=== PATIENT | male | born 1960 | race Caucasian/White ===

== ENCOUNTER 2021-04-19 02:02 | Day surgery (SDC) | payer OTHER, SELFPAY ==
[2021-04-10 14:47] VITALS: BMI 35.9
[2021-04-19] MEDS: LACTATED RINGERS 1,000 ML 150 ML IV CONT (07:04)
[2021-04-19 07:06] VITALS: BP 156/85; PULSE 51; RESP 18; TEMP 36.2; O2SAT 99
--- NOTE | 2021-04-19 07:08 | WPDANESEPPF ---
Anes - Initial Pre Proc Eval Procedure: Operation Date: 04/19/21 08:00 Proposed Procedures p Screening Colonoscopy - Geoffrey Rodas MD Date/Time: 04/19/21 07:08 Surgeon: Geoffrey Rodas MD Pre Op Diagnosis: neoplasm screening Patient Data Age: 60 Gender: M Height: 1.73 m Weight: 107 kg Allergies Allergy/AdvReac Type Severity Reaction Status Date / Time No Known Drug Allergies Allergy Unknown Unknown Verified 04/10/21 15:08 Home Medications Medication Instructions Recorded Confirmed Type amlodipine 10 mg tablet 10 mg PO DAILY #90 tablet 12/28/20 04/10/21 Rx hydrochlorothiazide 25 mg tablet 25 mg PO DAILY #90 tablet 12/28/20 04/10/21 Rx valsartan 320 mg tablet 320 mg PO DAILY #90 tablet 12/28/20 04/10/21 Rx fenofibrate 160 mg PO DAILY 04/10/21 04/10/21 History metoprolol succinate 50 mg PO BID 04/10/21 04/10/21 History Patient hx anesthesia problems: none Family hx anesthesia problems: none PMFSH Surgical History Surgical History H/O colonoscopy History of carpal tunnel release Total knee replacement status Family History Family History Mother Diabetes mellitus Hypertension Family history of kidney disease Family history of coronary artery disease Father Hypertension Acute myocardial infarction Family history of coronary artery disease Patient's father is , Onset Age: 61 Sibling Acute myocardial infarction Family history of malignant neoplasm of brain Family history of obesity, Onset Age: 43 Family history of coronary artery disease, Onset Age: 43 Social History Social History Smoking status: Never smoker Alcohol intake: current Drinks per week: 5 Substance use: never Substance use type: does not use Living arrangements: with family Gender identity (if verbalized by the patient): Male Sexual Orientation (if Verbalized by the Patient): Straight or Heterosexual Spiritual care concerns: No Anes - Eval Final PreProcedure Day of Procedure 04/19/21 07:08 Patient weight: obese Heart: regular rate and rhythm Lungs: clear to auscultation Airway: Mallampati scale class II Neurological: alert and oriented Last oral intake: >/= 8 hours ASA classification: III Emergent: no Anesthetic plan: proceed Anesthesia type and monitoring: general GIVS and standard monitoring Informed Consent: The patient's anesthetic plan and its attendant risks and benefits were discussed with the patient/family/POA. Questions were solicited and answers provided to the satisfaction of the patient/family/POA.
--- NOTE | 2021-04-19 07:57 | PM.HPGS ---
History of Present Illness History of Present Illness Consent: Risks, benefits, and alternatives have been discussed and questions answered. Patient agrees to proceed with procedure. Chief complaint: neoplasm screening Narrative: Mg George is a 60 year old male with last colonoscopy 11 years ago. Review of Systems Constitutional: Constitutional: Denies headache(s) and Denies weakness Eyes: Eyes: Denies blurry vision ENT: Reports Normal hearing present, Denies headache(s) and Denies neck pain Cardiovascular: Cardiovascular: Denies chest pain and Denies dyspnea Respiratory: Respiratory: Denies dyspnea Gastrointestinal: Gastrointestinal: Reports no additional gastrointestinal complaints Genitourinary: Genitourinary: Denies dysuria Musculoskeletal: Musculoskeletal: Denies neck pain Integumentary/Breasts: Skin/Breast: Denies dry skin Neurologic: Reports Normal hearing present, Denies headache(s) and Denies weakness Psychiatric: Psychiatric: Denies anxiety Endocrine: Endocrine: Denies change in body appearance Hematologic/Lymphatic: Hematologic/Lymphatic: Denies easy bleeding Allergic/Immunologic: Allergic/Immunologic: Denies urticaria PMFSH Surgical History Surgical History H/O colonoscopy History of carpal tunnel release Total knee replacement status Family History Family History Mother Diabetes mellitus Hypertension Family history of kidney disease Family history of coronary artery disease Father Hypertension Acute myocardial infarction Family history of coronary artery disease Patient's father is , Onset Age: 61 Sibling Acute myocardial infarction Family history of malignant neoplasm of brain Family history of obesity, Onset Age: 43 Family history of coronary artery disease, Onset Age: 43 Social History Social History Smoking status: Never smoker Alcohol intake: current Drinks per week: 5 Substance use: never Substance use type: does not use Living arrangements: with family Gender identity (if verbalized by the patient): Male Sexual Orientation (if Verbalized by the Patient): Straight or Heterosexual Spiritual care concerns: No Meds Home Medications and Allergies Home Medications Medication Instructions Recorded Confirmed Type amlodipine 10 mg tablet 10 mg PO DAILY #90 tablet 12/28/20 04/10/21 Rx hydrochlorothiazide 25 mg tablet 25 mg PO DAILY #90 tablet 12/28/20 04/10/21 Rx valsartan 320 mg tablet 320 mg PO DAILY #90 tablet 12/28/20 04/10/21 Rx fenofibrate 160 mg PO DAILY 04/10/21 04/10/21 History metoprolol succinate 50 mg PO BID 04/10/21 04/10/21 History Allergies Allergy/AdvReac Type Severity Reaction Status Date / Time No Known Drug Allergies Allergy Unknown Unknown Verified 04/19/21 07:09 Vital Signs Vital Signs - 24 hr 04/19/21 07:06 Temperature 97.2 F L Pulse Rate 51 L Respiratory Rate 18 Blood Pressure 156/85 H Pulse Oximetry 99 Exam Const: General: comfortable and no acute distress HENMT: General nose exam: Normal nares present Eyes: General: appearance normal, both eyes and all related structures Neck: Neck: no JVD Resp: Auscultation: clear to auscultation bilaterally Cardio: Rate: regular rate Rhythm: regular rhythm GI: Inspection: non-distended GI Palp: Yes Soft to palpation Skin: General skin exam: normal color Neuro: General: gait normal Speech: normal speech Extrem: General: normal to inspection Psych: Mental Status: mental status grossly normal Assessment and Plan Assessment and plan (1) Screening for colon cancer: Code(s): Z12.11 - Encounter for screening for malignant neoplasm of colon Status: Acute Assessment and Plan: colonoscopy
[2021-04-19 08:16] VITALS: BP 94/47; PULSE 48; RESP 22; O2SAT 93
[2021-04-19 08:26] VITALS: BP 118/60; PULSE 48; RESP 16; O2SAT 96
[2021-04-19 08:36] VITALS: BP 132/70; PULSE 46; RESP 18; O2SAT 96
== END 2021-04-19 08:48 | disposition home or self-care (01) ==
PROVIDERS: PCP Family Medicine; Visit Provider Internal Medicine Gastroenterology
PROC: 0DJD8ZZ Inspection of Lower Intestinal Tract, Via Natural or Artificial Opening Endoscopic (ICD-10-PCS; CPT 45378; principal; 2021-04-19 08:00)
DX: Z12.11 Encounter for screening for malignant neoplasm of colon (principal); K64.8 Other hemorrhoids; D12.3 Benign neoplasm of transverse colon; D12.8 Benign neoplasm of rectum; K57.30 Diverticulosis of large intestine without perforation or abscess without bleeding; E66.9 Obesity, unspecified; Z68.35 Body mass index [BMI] 35.0-35.9, adult
CPT/HCPCS: 45385; 88305; J2704; J7120

== ENCOUNTER 2024-08-17 09:20 | Emergency (ER) | payer MEDICARE, SELFPAY ==
--- NOTE | ~2024-08-17 | XR_ITS ---
Portable chest x-ray Comparison: None Clinical History: Arrhythmia Findings: Lungs are clear, without focal consolidation or pleural effusion. Cardiomediastinal silho uette is mildly prominent, possibly due to AP technique. Bones and soft tissues are unremarkable. Impression: Clear lungs. Reviewed, dictated and finalized at location . [facility] Impression: Clear lungs.
--- NOTE | 2024-08-17 09:25 | ECG_ITS ---
Test Date: 2024-08-17 09:37:21 Measurements Intervals [place] Rate: 98 P: 0 IA: 0 QRS: -37 QRSD: 105 T: 36 QT: 333 QTc: 426 Interpretive Statements ATRIAL FIBRILLATION WITH ABERRANT CONDUCTION OR VENTRICULAR PREMATURE COMPLEXES POSSIBLE ANTERIOR MYOCARDIAL INFARCTION , PROBABLY OLD [30 ms Q WAVE IN V3/V4, OR R < 0.2 mV IN V4] INFERIOR MYOCARDIAL INFARCTION , PROBABLY OLD [40+ ms Q WAVE AND/OR ST/T ABNORMALITY IN II/aVF] No previous ECG available for comparison Electronically Signed On 08-17-2024 12:05:39 [employer] by Sonido Aviles M.D.
[2024-08-17 09:30] VITALS: BP 140/95; PULSE 88; RESP 18; TEMP 36.7; O2SAT 96
[2024-08-17 09:43] LABS: Basophils Percent Auto 0.4 % (0.2-1.2); Eosinophils Absolute Auto 0.1 K/mm3 (0-0.3); Eosinophils Percent Auto 0.7 % (0-4.4); Hematocrit 40.3 % (42.0-52.0); Hemoglobin 13.7 g/dL (14.0-18.0); Immature Granulocyte Absolute 0.05 K/mm3 (0.00-0.031); Immature Granulocyte Percent A 0.5 % (0-0.5); Lymphocytes Absolute Auto 1.83 K/mm3 (0.9-3.2); Lymphocytes Percent Auto 16.7 % (18.3-44.2); Mean Corpuscular Hemoglobin 30.4 pg (26-34); Mean Corpuscular Volume 89.6 fl (80-100); Mean Platelet Volume 11.1 fl (7.4-10.4); Monocytes Absolute Auto 0.9 K/mm3 (0.1-0.6); Monocytes Percent Auto 8.3 % (2.6-8.5); Neutrophils Percent Auto 73.4 % (45.5-73.1); Platelet Count Result 249 k/mm3 (150-375); Red Cell Distribution Width 12.8 % (11.5-14.5); White Blood Count 10.9 K/mm3 (4.5-10.0)
[2024-08-17 09:56] LABS: INR 1.2; Prothrombin Time 15.3 Seconds (11.1-14.7)
[2024-08-17 09:57] LABS: Partial Thromboplastin Time 26.7 Seconds (22.3-36.8)
[2024-08-17 09:58] LABS: Alanine Aminotransferase 19 U/L (6-50); Albumin Level 4.5 g/dL (3.5-5.1); Alkaline Phosphatase 33 U/L (38-126); Anion Gap 10 mmol/L (4-12); Aspartate Amino Transferase 30 U/L (17-59); Bilirubin,Total 0.8 mg/dL (0.2-1.3); Blood Urea Nitrogen 16 mg/dL (9-20); Calcium 9.4 mg/dL (8.4-10.2); Carbon Dioxide 21 mmol/L (22-30); Chloride 108 mmol/L (98-107); Estimated CRCL calculation 87 ml/min; Estimated Glomerular Filt Rate > 60; Glucose 114 mg/dL (65-110); Potassium 3.7 mmol/L (3.4-5.0); Sodium 139 mmol/L (137-145)
[2024-08-17 10:08] LABS: Troponin I < 0.012 ng/mL (0.000-0.034)
[2024-08-17 10:37] VITALS: BP 129/104; PULSE 95; RESP 18; O2SAT 97
[2024-08-17 10:38] VITALS: PULSE 87
--- NOTE | 2024-08-17 10:46 | ED.ARRPALP ---
HPI - Arrhythmia/Palpitations General Chief Complaint: Arrhythmia/Palpitations Stated Complaint: sent by PMD for AFIB Time Seen by Provider: 08/17/24 10:38 History of Present Illness HPI narrative: Pt sent from PCP office with new onset a fib. Pt denies CP or SOB. Pt denies new excercise intolerance. Pt not on blood thinners. Related Data Home Medications ?Medication ?Instructions ?Recorded ?Confirmed ?Last Taken ?Type metoprolol succinate 100 mg 100 mg PO DAILY 04/16/24 08/17/24 Unknown History tablet,extended release 24 hr multivitamin 1 tablet PO DAILY 08/17/24 08/17/24 Unknown History Allergies Allergy/AdvReac Type Severity Reaction Status Date / Time No Known Drug Allergies Allergy Unknown Unknown Verified 08/17/24 09:21 Review of Systems Review of Systems: All systems reviewed & are unremarkable except as noted in HPI and below PMFSH Surgical History Surgical History History of carpal tunnel release H/O colonoscopy Total knee replacement status Family History Family History Mother Diabetes mellitus Hypertension Family history of kidney disease Family history of coronary artery disease Father Hypertension Acute myocardial infarction Family history of coronary artery disease Patient's father is , Onset Age: 61 Sibling Acute myocardial infarction Family history of malignant neoplasm of brain Family history of obesity, Onset Age: 43 Family history of coronary artery disease, Onset Age: 43 Social History Social History Social History: Caffeine- soda, decaf coffee Smoking status: Never smoker Second hand tobacco smoke exposure: No Alcohol intake: current Drinks per week: 5 Alcohol use details: beer Substance use: never Substance use type: does not use Do You Feel Safe in your Home?: Yes Lack of Transportation: No Lack of Food: Never True Current Housing: I Have Housing Concerned About Future Housing: No Difficulty Paying Gas/Electric Bills: No Difficulty Paying for Meds: No Currently Unemployed: No Education: High School Diploma/GED Difficulty w/ Childcare or Family Care: No Living arrangements: with family Gender identity (if verbalized by the patient): Male Sexual Orientation (if Verbalized by the Patient): Straight or Heterosexual Spiritual care concerns: No Exam Const: General: healthy appearing and no acute distress Nutritional Appearance: well nourished Orientation/consciousness: patient oriented x3 Limitations: no limitations Chest: Chest palpation & inspection: normal inspection of the chest Resp: Effort & Inspection: normal respiratory effort Auscultation: clear to auscultation bilaterally Cardio: Rate: regular rate Rhythm: abnormal rhythm GI: GI Palp: Yes Soft to palpation and No Tenderness to palpation present (GI) Auscultation: normal bowel sounds Skin: General skin exam: normal color Rashes: no rashes Wounds: no wounds Neuro: General: patient oriented x3, moves all extremities, no meningeal signs and CN's II-XI intact bilaterally Cranial nerves: Yes Nystagmus not present Speech: normal speech Extrem: General: normal to inspection and no clubbing, cyanosis or edema Psych: Mental Status: mental status grossly normal Affect: normal affect Attitude: cooperative Course Vital Signs Vital signs: Vital Signs Temperature 98.1 F 08/17/24 09:30 Pulse Rate 88 08/17/24 09:30 Respiratory Rate 18 08/17/24 09:30 Blood Pressure 140/95 H 08/17/24 09:30 Pulse Oximetry 96 08/17/24 09:30 Oxygen Delivery Room Air 08/17/24 09:30 Temperature 97.8 F 08/17/24 11:33 Pulse Rate 99 08/17/24 11:33 Respiratory Rate 18 08/17/24 11:33 Blood Pressure 141/98 H 08/17/24 11:33 Pulse Oximetry 98 08/17/24 11:33 Oxygen Delivery Room Air 08/17/24 10:37 MDM - Arrhythmia/Palpitations MDM Narrative Medical decision making narrative: Pt new onset a fib rate controlled. Pt asymptomatic. will check labs and ekg and cxr. labs unremarkable. discussed with dr dyer asked for cards to evaluate to determine need for admission or outpatient work up. discussed with paul Clark and says no need for admission. can send home on eliquis or xeralto with outpatient follow up with either pcp or cardiology. Lab Data 08/17/24 09:33 08/17/24 09:33 Labs: Lab Results 08/17/24 08/17/24 08/17/24 Range/Units 09:33 09:33 09:33 WBC 10.9 H (4.5-10.0) K/mm3 RBC 4.50 L (4.6-6.20) M/mm3 Hgb 13.7 L (14.0-18.0) g/dL Hct 40.3 L (42.0-52.0) % MCV 89.6 (80-100) fl MCH 30.4 (26-34) pg MCHC 34.0 (32-36) g/dl RDW 12.8 (11.5-14.5) % Plt Count 249 (150-375) k/mm3 MPV 11.1 H (7.4-10.4) fl Immature Gran % (Auto) 0.5 (0-0.5) % Neut % (Auto) 73.4 H (45.5-73.1) % Lymph % (Auto) 16.7 L (18.3-44.2) % [place] % (Auto) 8.3 (2.6-8.5) % Eos % (Auto) 0.7 (0-4.4) % Baso % (Auto) 0.4 (0.2-1.2) % Lymph # (Auto) 1.83 (0.9-3.2) K/mm3 [place] # (Auto) 0.9 H (0.1-0.6) K/mm3 Eos # (Auto) 0.1 (0-0.3) K/mm3 Baso # (Auto) 0.0 (0.0-0.1) K/mm3 Abs Immat Gran (auto) 0.05 H (0.00-0.031) K/mm3 Absolute Neuts (auto) 8.0 H (1.3-6.7) K/mm3 Absolute Nucleated RBC 0.000 (0.0-0.012) K/mm3 Nucleated RBC % 0.0 (0.0-0.2) % PT 15.3 H (11.1-14.7) Seconds INR 1.2 APTT 26.7 (22.3-36.8) Seconds Sodium Cancelled 139 Potassium Cancelled 3.7 Chloride Cancelled Carbon Dioxide Anion Gap BUN Creatinine Estim Creat Clear Calc Estimated GFR Glucose Calcium Total Bilirubin AST ALT Alkaline Phosphatase Troponin I (0.000-0.034) ng/mL Total Protein Albumin 08/17/24 08/17/24 08/17/24 Range/Units 09:33 09:33 09:33 WBC (4.5-10.0) K/mm3 RBC (4.6-6.20) M/mm3 Hgb (14.0-18.0) g/dL Hct (42.0-52.0) % MCV (80-100) fl MCH (26-34) pg MCHC (32-36) g/dl RDW (11.5-14.5) % Plt Count (150-375) k/mm3 MPV (7.4-10.4) fl Immature Gran % (Auto) (0-0.5) % Neut % (Auto) (45.5-73.1) % Lymph % (Auto) (18.3-44.2) % [place] % (Auto) (2.6-8.5) % Eos % (Auto) (0-4.4) % Baso % (Auto) (0.2-1.2) % Lymph # (Auto) (0.9-3.2) K/mm3 [place] # (Auto) (0.1-0.6) K/mm3 Eos # (Auto) (0-0.3) K/mm3 Baso # (Auto) (0.0-0.1) K/mm3 Abs Immat Gran (auto) (0.00-0.031) K/mm3 Absolute Neuts (auto) (1.3-6.7) K/mm3 Absolute Nucleated RBC (0.0-0.012) K/mm3 Nucleated RBC % (0.0-0.2) % PT (11.1-14.7) Seconds INR APTT (22.3-36.8) Seconds Sodium Potassium Chloride 108 H Carbon Dioxide Cancelled 21 L Anion Gap Cancelled 10 BUN Cancelled Creatinine Estim Creat Clear Calc Estimated GFR Glucose Calcium Total Bilirubin AST ALT Alkaline Phosphatase Troponin I (0.000-0.034) ng/mL Total Protein Albumin 08/17/24 08/17/24 08/17/24 Range/Units 09:33 09:33 09:33 WBC (4.5-10.0) K/mm3 RBC (4.6-6.20) M/mm3 Hgb (14.0-18.0) g/dL Hct (42.0-52.0) % MCV (80-100) fl MCH (26-34) pg MCHC (32-36) g/dl RDW (11.5-14.5) % Plt Count (150-375) k/mm3 MPV (7.4-10.4) fl Immature Gran % (Auto) (0-0.5) % Neut % (Auto) (45.5-73.1) % Lymph % (Auto) (18.3-44.2) % [place] % (Auto) (2.6-8.5) % Eos % (Auto) (0-4.4) % Baso % (Auto) (0.2-1.2) % Lymph # (Auto) (0.9-3.2) K/mm3 [place] # (Auto) (0.1-0.6) K/mm3 Eos # (Auto) (0-0.3) K/mm3 Baso # (Auto) (0.0-0.1) K/mm3 Abs Immat Gran (auto) (0.00-0.031) K/mm3 Absolute Neuts (auto) (1.3-6.7) K/mm3 Absolute Nucleated RBC (0.0-0.012) K/mm3 Nucleated RBC % (0.0-0.2) % PT (11.1-14.7) Seconds INR APTT (22.3-36.8) Seconds Sodium Potassium Chloride Carbon Dioxide Anion Gap BUN 16 Creatinine Cancelled 0.90 Estim Creat Clear Calc Cancelled 87 Estimated GFR Cancelled Glucose Calcium Total Bilirubin AST ALT Alkaline Phosphatase Troponin I (0.000-0.034) ng/mL Total Protein Albumin 08/17/24 08/17/24 08/17/24 Range/Units 09:33 09:33 09:33 WBC (4.5-10.0) K/mm3 RBC (4.6-6.20) M/mm3 Hgb (14.0-18.0) g/dL Hct (42.0-52.0) % MCV (80-100) fl MCH (26-34) pg MCHC (32-36) g/dl RDW (11.5-14.5) % Plt Count (150-375) k/mm3 MPV (7.4-10.4) fl Immature Gran % (Auto) (0-0.5) % Neut % (Auto) (45.5-73.1) % Lymph % (Auto) (18.3-44.2) % [place] % (Auto) (2.6-8.5) % Eos % (Auto) (0-4.4) % Baso % (Auto) (0.2-1.2) % Lymph # (Auto) (0.9-3.2) K/mm3 [place] # (Auto) (0.1-0.6) K/mm3 Eos # (Auto) (0-0.3) K/mm3 Baso # (Auto) (0.0-0.1) K/mm3 Abs Immat Gran (auto) (0.00-0.031) K/mm3 Absolute Neuts (auto) (1.3-6.7) K/mm3 Absolute Nucleated RBC (0.0-0.012) K/mm3 Nucleated RBC % (0.0-0.2) % PT (11.1-14.7) Seconds INR APTT (22.3-36.8) Seconds Sodium Potassium Chloride Carbon Dioxide Anion Gap BUN Creatinine Estim Creat Clear Calc Estimated GFR > 60 Glucose Cancelled 114 H Calcium Cancelled 9.4 Total Bilirubin Cancelled AST ALT Alkaline Phosphatase Troponin I (0.000-0.034) ng/mL Total Protein Albumin 08/17/24 08/17/24 08/17/24 Range/Units 09:33 09:33 09:33 WBC (4.5-10.0) K/mm3 RBC (4.6-6.20) M/mm3 Hgb (14.0-18.0) g/dL Hct (42.0-52.0) % MCV (80-100) fl MCH (26-34) pg MCHC (32-36) g/dl RDW (11.5-14.5) % Plt Count (150-375) k/mm3 MPV (7.4-10.4) fl Immature Gran % (Auto) (0-0.5) % Neut % (Auto) (45.5-73.1) % Lymph % (Auto) (18.3-44.2) % [place] % (Auto) (2.6-8.5) % Eos % (Auto) (0-4.4) % Baso % (Auto) (0.2-1.2) % Lymph # (Auto) (0.9-3.2) K/mm3 [place] # (Auto) (0.1-0.6) K/mm3 Eos # (Auto) (0-0.3) K/mm3 Baso # (Auto) (0.0-0.1) K/mm3 Abs Immat Gran (auto) (0.00-0.031) K/mm3 Absolute Neuts (auto) (1.3-6.7) K/mm3 Absolute Nucleated RBC (0.0-0.012) K/mm3 Nucleated RBC % (0.0-0.2) % PT (11.1-14.7) Seconds INR APTT (22.3-36.8) Seconds Sodium Potassium Chloride Carbon Dioxide Anion Gap BUN Creatinine Estim Creat Clear Calc Estimated GFR Glucose Calcium Total Bilirubin 0.8 AST Cancelled 30 ALT Cancelled 19 Alkaline Phosphatase Cancelled Troponin I (0.000-0.034) ng/mL Total Protein Albumin 08/17/24 08/17/24 08/17/24 Range/Units 09:33 09:33 09:33 WBC (4.5-10.0) K/mm3 RBC (4.6-6.20) M/mm3 Hgb (14.0-18.0) g/dL Hct (42.0-52.0) % MCV (80-100) fl MCH (26-34) pg MCHC (32-36) g/dl RDW (11.5-14.5) % Plt Count (150-375) k/mm3 MPV (7.4-10.4) fl Immature Gran % (Auto) (0-0.5) % Neut % (Auto) (45.5-73.1) % Lymph % (Auto) (18.3-44.2) % [place] % (Auto) (2.6-8.5) % Eos % (Auto) (0-4.4) % Baso % (Auto) (0.2-1.2) % Lymph # (Auto) (0.9-3.2) K/mm3 [place] # (Auto) (0.1-0.6) K/mm3 Eos # (Auto) (0-0.3) K/mm3 Baso # (Auto) (0.0-0.1) K/mm3 Abs Immat Gran (auto) (0.00-0.031) K/mm3 Absolute Neuts (auto) (1.3-6.7) K/mm3 Absolute Nucleated RBC (0.0-0.012) K/mm3 Nucleated RBC % (0.0-0.2) % PT (11.1-14.7) Seconds INR APTT (22.3-36.8) Seconds Sodium Potassium Chloride Carbon Dioxide Anion Gap BUN Creatinine Estim Creat Clear Calc Estimated GFR Glucose Calcium Total Bilirubin AST ALT Alkaline Phosphatase 33 L Troponin I < 0.012 (0.000-0.034) ng/mL Total Protein Cancelled 8.0 Albumin Cancelled 4.5 Discharge Plan Discharge Clinical Impression: Atrial fibrillation, new onset Patient Disposition: Home, Self-Care Condition: Stable Instructions: Antibiotic Form, A-fib (Atrial Fibrillation) (ED) Patient Language: Thai Prescriptions: New Xarelto 20 mg tablet 20 mg PO DAILY Qty: 30 0RF Rx Instructions: must administer with evening meal No Action multivitamin Tablet 1 tablet PO DAILY levothyroxine 25 mcg tablet 25 mcg PO DAILY Qty: 90 1RF fenofibrate 160 mg tablet 160 mg PO DAILY Qty: 90 1RF metoprolol succinate 100 mg tablet extended release 24 hr 100 mg PO DAILY hydrochlorothiazide 25 mg tablet 25 mg PO DAILY Qty: 90 1RF amlodipine-valsartan 10-320 mg tablet See Rx Instructions .ROUTE .COMPLEX Qty: 90 1RF Dose Instruction: TAKE 1 TABLET DAILY Rx Instructions: TAKE 1 TABLET DAILY Follow-up/Referrals: Sonido Aviles MD [Physician] - Abril Hall DO [Primary Care Provider] -
[2024-08-17] MEDS: ENOXAPARIN 120 MG/0.8 ML SYRINGE 115 MG SUB-Q (11:25)
[2024-08-17 11:33] VITALS: BP 141/98; PULSE 99; RESP 18; TEMP 36.6; O2SAT 98
== END 2024-08-17 11:35 | disposition home or self-care (01) ==
PROVIDERS: Emergency Provider Emergency Medicine; PCP Family Medicine
DX: I48.91 Unspecified atrial fibrillation (principal); Z96.659 Presence of unspecified artificial knee joint; R94.31 Abnormal electrocardiogram [ECG] [EKG]; Z79.899 Other long term (current) drug therapy
CPT/HCPCS: 36415; 71045; 80053; 84484; 85025; 85610; 85730; 93005; 96372; 99284; J1650

== ENCOUNTER 2024-08-22 18:01 | Emergency (ER) | payer MEDICARE, SELFPAY ==
[2024-08-22 18:15] VITALS: BP 127/89; PULSE 97; RESP 18; TEMP 36.8; O2SAT 98
--- NOTE | 2024-08-22 18:35 | ED_ITS ---
HPI - URI/Sore Throat General Chief Complaint: Upper Respiratory Infection Stated Complaint: Sore Throat/Cough Time Seen by Provider: 08/22/24 18:30 Source: patient, RN notes reviewed and old records reviewed Mode of arrival: ambulatory Limitations: no limitations History of Present Illness HPI Narrative: 64 year old male who presents to [facility] care today with complaints of cough, some sore throat and also productive cough of yellowish green and brownish tinged mucous. Patient reports that he went to his Medicare wellness visit on Saturday and received his flu and pneumo vaccines and he was also diagnosed with new onset of A-fib and started on Zaralto, Patient reports that he just returned from [place] from visiting his daughter and her and kids who were ill prior to becoming ill. MD elicited complaint: cough and other (sore throat, cough, low grade fevers) Onset (ago): day(s) (6) Consistency: constant Severity: moderate Description of mucous: yellow, green and other (brownish) Able to tolerate fluids by mouth: Yes Treatments prior to arrival: none Related Data Home Medications ?Medication ?Instructions ?Recorded ?Confirmed ?Last Taken ?Type metoprolol succinate 100 mg 100 mg PO DAILY 04/16/24 08/22/24 Unknown History tablet,extended release 24 hr multivitamin 1 tablet PO DAILY 08/17/24 08/22/24 Unknown History Allergies Allergy/AdvReac Type Severity Reaction Status Date / Time No Known Drug Allergies Allergy Unknown Unknown Verified 08/22/24 18:12 Review of Systems Review of Systems: CONSTITUTIONAL: Reports malaise, chills, sweats, low grade fever. EYES: Denies visual changes, redness, or discharge. ENT: Reports rhinorrhea, congestion, sinus pain,no otalgia and positive for sore throat. CARDIOVASCULAR: Denies chest pain, palpitations, or edema. RESPIRATORY: Reports cough.? Denies dyspnea. GASTROINTESTINAL: Denies abdominal pain, nausea, vomiting, diarrhea SKIN: Denies rash or itching. MUSCULOSKELETAL: Denies myalgia. NEUROLOGIC: Denies headache. All systems reviewed & are unremarkable except as noted in HPI and below PMFSH Past Medical History Medical History Atrial fibrillation new onset Prediabetes Obesity, unspecified Hypertriglyceridemia Hypothyroidism Surgical History Surgical History History of carpal tunnel release H/O colonoscopy Total knee replacement status Family History Family History Mother Diabetes mellitus Hypertension Family history of kidney disease Family history of coronary artery disease Father Hypertension Acute myocardial infarction Family history of coronary artery disease Patient's father is , Onset Age: 61 Sibling Acute myocardial infarction Family history of malignant neoplasm of brain Family history of obesity, Onset Age: 43 Family history of coronary artery disease, Onset Age: 43 Social History Social History Social History: Caffeine- soda, decaf coffee Smoking status: Never smoker Second hand tobacco smoke exposure: No Alcohol intake: current Drinks per week: 5 Alcohol use details: beer Substance use: never Substance use type: does not use Do You Feel Safe in your Home?: Yes Lack of Transportation: No Lack of Food: Never True Current Housing: I Have Housing Concerned About Future Housing: No Difficulty Paying Gas/Electric Bills: No Difficulty Paying for Meds: No Currently Unemployed: No Education: High School Diploma/GED Difficulty w/ Childcare or Family Care: No Living arrangements: with family Gender identity (if verbalized by the patient): Male Sexual Orientation (if Verbalized by the Patient): Straight or Heterosexual Spiritual care concerns: No Comments At time of signature, agree with nursing past medical, surgical, social and family history. There is no relevant family history pertinent to the presenting complaint Exam Narrative: GENERAL: Well-appearing, well-nourished, and in no acute distress. HEAD: Normocephalic EYES: PERRLA, conjunctivae clear ENT: Nares clear, turbinates edematous and erythematous, clear discharge. Mucous membranes moist. TM pearly jeong with dull light reflex bilaterally; no tragal tenderness. Oropharynx erythematous without lesions. Tonsils mildly enlarged and without exudate, no drooling, no hoarseness, no trismus, uvula midline.post nasal discharge NECK: Supple. No lymphadenopathy CHEST: Clear to auscultation, breath sounds equal. No wheezing, rhonchi, rales, or stridor. No respiratory distress, speaks in full sentences.SAO2 98% on room air, cough noted at times is productive HEART: Irregular rate and rhythm. No murmur heard. SKIN: Warm, dry, no rash. NEURO: Alert and oriented x3. PSYCH: Normal mood and affect Course Course Emergency Course: Patient is aware of diagnosis, understands and agrees to treatment plan.? Anticipatory guidance given.? Patient agrees to follow-up as directed and is aware of reasons to seek care at the emergency department. Portions of this record may have been created with voice recognition software Level of Care: Express Care Visit Vital Signs Vital signs: Vital Signs Temperature 36.8 C 08/22/24 18:15 Pulse Rate 97 08/22/24 18:15 Respiratory Rate 18 08/22/24 18:15 Blood Pressure 127/89 08/22/24 18:15 Pulse Oximetry 98 08/22/24 18:15 Oxygen Delivery Room Air 08/22/24 18:15 Temperature 36.8 C 08/22/24 18:15 Pulse Rate 97 08/22/24 18:15 Respiratory Rate 18 08/22/24 18:15 Blood Pressure 127/89 08/22/24 18:15 Pulse Oximetry 98 08/22/24 18:15 Oxygen Delivery Room Air 08/22/24 18:15 Reviewed MDM - URI/Sore Throat MDM Narrative Medical decision making narrative: Differential diagnosis considered: Clements virus, strep pharyngitis, allergic rhinitis, upper respiratory tract infection, sinusitis, rhinosinusitis, nasopharyngitis. viral pharyngitis, otitis media, otitis externa, pneumonia, bronchitis, viral cough syndrome, viral syndrome, and influenza.? Exam findings show no acute concerns or changes; patient is non-toxic appearing and is in no distress.? Patient is appropriate for outpatient treatment and follow-up. Differential Diagnosis Differential diagnosis: Likely upper respiratory infection, sinusitis, viral infection, bronchitis, pharyngitis and other (cough) Medical Records Attestation: I reviewed the patient's medical records. Lab Data Attestation: I reviewed the patient's lab results. Critical Care Time Critical Care Time Critical Care Time: No Discharge Plan Discharge Clinical Impression: URI with cough and congestion Patient Disposition: Home, Self-Care Condition: Stable Instructions: Upper Respiratory Infection (ED) Additional Instructions: Increase fluids especially juices and water Ccxb-ive-lmtlgkj cough and cold medicine of your choice for your symptoms Cough tablets as directed for cough--do not bite, chew or suck on--swallow whole Zyrtec Claritin or Lise daily may use Coricidin brand decongestant heat to the face 20-30 minutes 4-6 times a day for pain Salt water gargles, throat lozenges or throat sprays as desired Antibiotic as directed--finished the medication Tylenol only for fever pain since you are on blood thinner If your symptoms persist, change or worsen significantly before you can contact your personal physician then please, without delay, go to the emergency depart ment for further evaluation. Follow-up with PCP in 7-10 days or sooner if needed Follow up with PCP soon in regards to your blood pressure which is elevated above threshold for referral. Blood pressure above 120/80 may indicate pre- hypertension.127/89 Patient Language: Citizen Of [place] Prescriptions: New amoxicillin 500 mg tablet 500 mg PO Q8H Qty: 30 0RF No Action multivitamin Tablet 1 tablet PO DAILY levothyroxine 25 mcg tablet 25 mcg PO DAILY Qty: 90 1RF fenofibrate 160 mg tablet 160 mg PO DAILY Qty: 90 1RF metoprolol succinate 100 mg tablet extended release 24 hr 100 mg PO DAILY Xarelto 20 mg tablet 20 mg PO DAILY Qty: 30 0RF Rx Instructions: must administer with evening meal hydrochlorothiazide 25 mg tablet 25 mg PO DAILY Qty: 90 1RF amlodipine-valsartan 10-320 mg tablet See Rx Instructions .ROUTE .COMPLEX Qty: 90 1RF Dose Instruction: TAKE 1 TABLET DAILY Rx Instructions: TAKE 1 TABLET DAILY Follow-up/Referrals: Abril Hall DO [Primary Care Provider] - Time of Disposition: 18:51 Quality Pavan Coma Scale Eyes: Open Verbal: Oriented and Alert Motor: Follows Commands P[place] Coma Total Score: 15
--- OUTSIDE RECORDS SUMMARY | 2024-08-29 23:30 | XMS_ITS | Continuity of Care Document ---
Author Organization [facility] Address [address] [place] [address] Phone Care Team Providers Care Self Sealing Fuel Tank Repairer Name Role Phone Tiffany Haider Unavailable Unavailable Allergies, Adverse Reactions, Alerts Substance Reaction Status Criticality No Known Allergies Active No Inform ation Medications Medication Instructions Dosage Effective Dates (start - stop) Status Comments sertraline 50 mg tablet 1/2 po qhs x 5 days then one po qhs - Active Procedures Procedure Date Group Therapy Group Therapy Group Therapy Group Therapy Group Therapy Group Therapy Group Therapy Group Therapy [place] 46[address] - TeleHealth Clinical Assessment - TeleHealth 2021 As per patient privacy policy some of the clinical information may not be visible. Advance Directives Directive Yes / No Effective Date File Name No Information Encounters Encounter Description Practice Location Reason(s) For Visit Diagnoses Date Provider Providers Copied on Encounter [facility] [employer] [facility], [address], [place], [place], [id number], [place] tel:[phone] Gene No Information 4 Vitaly Allen. [address], [address], [place], [address]. tel:[phone] [facility] [employer] [facility], [address] [facility] [address], [place], [place], [id number], [place] tel:[phone] 3 Stamper Kenney. [address], [address], [place], [address]. tel:[phone] Group Therapy [facility], [address], [place], [place], [id number], [place] tel:[phone] [place] 3 Jordan Millei. [address], [address], [place], [address]. tel:[phone] Group Therapy [facility], [address], [place], [place], [id number], [place] tel:[phone] [place] 3 Jordan Millie. [address], [address], [place], [address]. tel:[phone] [facility], [address], [place], [place], [id number], [place] tel:[phone] 3 Mainer Kenney. [address], [address], [place], [address]. tel:[phone] Group Therapy [facility], [address], [place], [place], [id number], [place] tel:[phone] [place] 3 Jordan Millie. [address], [address], [place], [address]. tel:[phone] Group Therapy [facility], [address], [place], [place], [id number], [place] tel:[phone] [place] 3 Jordan Millie. [address], [address], [place], [address]. tel:[phone] Group Therapy [facility], [address], [place], [place], [id number], [place] tel:[phone] [place] 3 Jordan Millie. [address], [address], [place], [address]. tel:[phone] [facility], [address], [place], [place], [id number], [place] tel:[phone] [place] 3 Stamper Kenney. [address], [place] [address], [place], [address]. tel:[phone] Group Therapy [facility], [address] [place] [address], [id number], [place] tel:[phone] [place] 2 Jessy Menominee. [address] [place] [address], [id number]. tel:[phone] [facility], [address] [facility] [address], [id number], [place] tel:[phone] [place] 2 Stamper Kenney. [address], [place] [address], [place], [address]. tel:[phone] Group Therapy [facility], [address] [place] [address], [id number], [place] tel:[phone] [place] 2 Brainard Menominee. [address] [place] [address], [id number]. tel:[phone] Group Therapy [facility], [address] [place] [address], [id number], [place] tel:[phone] [place] 2 Brainard Menominee. [address] [place] [address], [id number]. tel:[phone] [facility], [address] [place] [address], [id number], [place] tel:[phone] [place] No Information 2 Jessy Menominee. [address] [place] [address], [id number]. tel:[phone] [facility], [address] [place] [address], [id number], [place] tel:[phone] [place] No Information 2 Stamper Kenney. [address], [address], [place], [address]. tel:[phone] [facility], [address] [place] [address], [id number], tel:[phone] [place] No Information Apr-1 1-202 2 Brainard Menominee. [address] [place] [address], [id number]. tel:[phone] [facility], [address] [place] [address], [id number], [place] tel:[phone] [place] No Information Apr-0 8-202 2 Brainard Shreyas. [address] [place] [address], [id number]. tel:[phone] [facility], [address] [place] [address], [id number], tel:[phone] [place] No Information Apr-0 6-202 2 Jessy Shreyas. [address] [place] [address], [id number]. tel:[phone] [facility], [address] [place] [address], [id number], [place] tel:[phone] [place] No Information Apr-0 4-202 2 Tabatha Moulton. [address], [facility] [address], [place], [address]. tel:[phone] [facility] 06328 - TeleHealth [facility], [address] [place] [address], [id number], [place] tel:[phone] [place] No Information Mar-2 5-202 2 Chan Lacy. [address] [place] [address], [id number]. tel:[phone] [facility], [address] [place] [address], [id number], [place] tel:[phone] [place] No Information Mar-2 5-202 2 Tabatha Moulton. [address], [facility], [place], [address]. tel:[phone] [facility], [address], [id number], [place] tel:[phone] [place] No Information Mar-2 3-202 2 Moncus Beth. [address] [place] [address], [id number]. tel:[phone] [facility], [address], [id number], [place] tel:[phone] [place] No Information Mar-2 3-202 2 Jessy Shreyas. [address] [place] [address], [id number]. tel:[phone] [facility], [address] [place] [address], [id number], [place] tel:[phone] [place] No Information Mar-2 1-202 2 Jessy Menominee. [address] [place] [address], [id number]. tel:[phone] [facility], [address] [place] [address], [id number], [place] tel:[phone] [place] No Information Mar-1 8- 2 Jessy Menominee. [address] [place] [address], [id number]. tel:[phone] [facility], [address] [place] [address], [id number], [place] tel:[phone] [place] No Information Mar-1 4-202 2 Brainard Menominee. [address] [place] [address], [id number]. tel:[phone] [facility], [address] [place] [address], [id number], [place] tel:[phone] [place] No Information Mar-1 1-202 2 Jessy Menominee. [address] [place] [address], [id number]. tel:[phone] [facility], [address] [place] [address], [id number], [place] tel:[phone] [place] No Information Mar-0 9-202 2 No Information [facility], [address], [id number], [place] tel:[phone] [place] No Information Mar-0 9-202 2 Jessy Shreyas. [address] [place] [address], [id number]. tel:[phone] [facility], [address] [place] [address], [id number], [place] tel:[phone] [place] No Information Mar-0 7-202 2 Jessy Shreyas. [address] [place] [address], [id number]. tel:[phone] [facility], [address] [place] [address], [id number], tel:[phone] [place] No Information Mar-0 4-202 2 Jessy Menominee. [address] [place] [address], [id number]. tel:[phone] [facility], [address] [place] [address], [id number], [place] tel:[phone] [place] No Information Mar-0 2-202 2 No Information [facility], [address] [place] [address], [id number], [place] tel:[phone] [place] No Information Mar-0 2-202 2 Tabatha Moulton. [address] [place] [address] , [address], [place], [address]. tel:[phone] [facility], [address] [place] [address], [id number], [place] tel:[phone] [place] No Information Feb-2 8- 2 Brainard Menominee. [address] [place] [address], [id number]. tel:[phone] [facility], [address] [place] [address], [id number], [place] tel:[phone] [place] No Information Feb-2 3-202 2 Jessy Menominee. [address] [place], [place], [id number]. tel:[phone] [facility], [address] [place] [address], [id number], [place] tel:[phone] [place] No Information Feb-2 - 2 Brainard Menominee. [address] [place], [place], [id number]. tel:[phone] [facility], [address] [place] [address], [id number], [place] tel:[phone] [place] No Information Feb-1 2 Jessy Menominee. [address] [place], [place], [id number]. tel:[phone] [facility], [address] [place] [address], [id number], [place] tel:[phone] [place] No Information Feb-1 - 2 No Information [facility], [address] [place] [address], [id number], [place] tel:[phone] [place] No Information Feb-1 2 Jessy Menominee. [address] [place], [place], [id number]. tel:[phone] [facility], [address] [place] [address], [id number], [place] tel:[phone] [place] No Information Feb-0 2 Brainard Shreyas. [address] [place], [place], [id number]. tel:[phone] [facility], [address] [place] [address], [id number], [place] tel:[phone] [place] No Information Feb-0 - 2 Brainard Shreyas. [address] [place] [address], [id number]. tel:[phone] [facility], [address] [place] [address], [id number], [place] tel:[phone] [place] No Information 2 No Information [facility], [address] [place] [address], [id number], [place] tel:[phone] [place] No Information 2 Jessy Menominee. [address] [place] [address], [id number]. tel:[phone] [facility], [address] [place] [address], [id number], [place] tel:[phone] [place] No Information 2 Jessy Menominee. [address] [place] [address], [id number]. tel:[phone] [facility], [address] [place] [address], [id number], [place] tel:[phone] [place] No Information 2 No Information [facility], [address] [place] [address], [id number], [place] tel:[phone] [place] No Information 2 Jessy Menominee. [address] [place] [address], [id number]. tel:[phone] [facility], [address] [place] [address], [id number], [place] tel:[phone] [place] No Information 2 Brainard Shreyas. [address] [place] [address], [id number]. tel:[phone] [facility], [address] [place] [address], [id number], [place] tel:[phone] [place] No Information 2 Jessy Menominee. [address] [place] [address], [id number]. tel:[phone] [facility], [address] [place] [address], [id number], [place] tel:[phone] [place] No Information 2 Jessy Pritchett. [address] [place], [place], [id number]. tel:[phone] [facility], [address] [facility] [facility] [address], [place], [id number], tel:[phone] [place] No Information 2 Jessy Pritchett. [address], [place], [id number]. tel:[phone] [facility], [address] [facility] [address], [place], [id number], tel:[phone] [place] No Information 2 No Information Clinical Assessment - TeleHealth [facility], [address], [place], [id number], tel:[phone] [place] Persistent depressive disorderPosttrau matic stress disorder [address] [facility], [address], [place], [address]. tel:[phone] As per patient privacy policy some of the clinical information may not be visible. Family History Family Member Type Diagnosis Age At Onset No Information Payers Payer name Insurance type Covered libertarian ID Authordua priteshkerry(s) [facility] [id number] Social History Type Description Quantity Date Captured Comments Sex Male Smoking Status No Information Sexual Orientation Straight or heterosexual Sep Gender Identity Male Chief Complaint And Reason For Visit No Information Reason For Referral Reason For Referral No Information Plan Of Treatment Date Type Action Status Goal Tobacco cessation counseling completed Future Order: Lab Order CMP (inthinc prehensive Metabolic Panel) ([id number]), Sent on: Sent Future Order: Lab Order TSH ([id number]), Sen t on: Sent Future Order: Lab Order CBCw Dif f ([id number]), Sent on: Sent Future Order: Lab Order Vitamin D, 25-Hydroxy ([id number]), Sent on: Sent History Of Present Illness Encounter Date Complaint History Of Prese nt Illness No Information Functional Status Date Functional Assessmen t No Information Instructions Date Instruction Additional Infor kusumamari {local.txt_patient_plan} Related to Posttraumatic stress disorder {local.txt_patient_plan} Related to Persistent depressive disorder As per patient privacy policy some of the clinical information may not be visible. Assessments Type Assessment Date No Information Patient Care Teams Name Effective Dates (start - stop) Status Members No Information
--- OUTSIDE RECORDS SUMMARY | 2024-08-29 23:30 | XMS_ITS | Referral Summary ---
Author Organization [facility] Address [address] [place] [address] Care Team Providers Care Policy Manager Name Role Phone Abril Hall DO Primary Care Provider [phone] Jordin Ocampo MD Unavailable [phone] Source Comments [facility],non-owned Affiliates and Associated Physician Practices is amultiple site organization consisting of ambulatory clinics and hospital sitesin [place], [place]. This disclosure is being madepursuant to the Care Everywhere program and may not contain all information available regarding this patient. Last updated 18.[facility] Immunizations Name Administration Dates Next Due TDAP (7yrs+) 11/21/2017 Social History Tobacco Use Types Packs/Day Years Used Date Smoking Tobacco: Never Assessed Sex and Gender Information Value Date Recorded Sex Assigned at Not on file Gender Identity Not on file Sexual Orientation Not on file Plan of Treatment Not on file Care Teams Policy Manager Relationship Specialty Start Date End Date Abril Hall DO [address] [place], [place] [id number] PCP - General 05/03/21 Jordin Ocampo MD [address] [place] [id number] Family Medicine 05/03/21
--- OUTSIDE RECORDS SUMMARY | 2024-08-29 23:30 | XMS_ITS | Encounter Summary ---
Author Organization [facility] Address [address] [facility] [place] [address] Care Team Providers Care Stem Setter Name Role Phone Jordin Ocampo MD Primary Care Provider [phone] Reason for Visit * Reason Comments Imm Inj Encounter Details Date Type Department Care Team (Late st Contact Info) Description 11/21/2017 10:20 AM CDT Office Visit [facility] AT [address] [place] [address] Provider, [facility] Jose Clark Need for vaccination (Primary Dx) Social History Tobacco Use Types Packs/Day Years Used Date Smoking Tobacco: Never Assessed Sex and Gender Information Value Date Recorded Sex Assigned at Not on file Gender Identity Not on file Sexual Orientation Not on file documented as of this encounter Progress Notes * Ramone Montez APRN-CNP - 11/21/2017 10:41 AM CDT Pt tolerated vaccine well TDAP documented in this encounter Plan of Treatment Not on file documented as of this encounter Visit Diagnoses Diagnosis Need for vaccination- Primary Need for prophylactic vaccination and inoculation against unspecified single disease documented in this encounter Care Teams Stem Setter Relationship Specialty Start Date End Date Jordin Ocampo MD [address] [place] [address] PCP - General Family Medicine 11/21/17 05/02/21 documented as of this encounter
--- OUTSIDE RECORDS SUMMARY | 2024-08-29 23:30 | XMS_ITS | Continuity of Care Document ---
Author Organization [facility] Address [address] [place] [address] Phone Care Team Providers Care Senior Caregiver Name Role Phone Tiffany Haider Unavailable Unavailable [...] Therapy Group Therapy Group [place] [address] - TeleHealth Clinical Assessment - TeleHealth 2021 As per patient privacy policy some of the clinical information may not be visible. Advance Directives Directive Yes / No Effective Date File Name No Information Encounters Encounter Description Practice Location Reason(s) For Visit Diagnoses Date Provider Providers Copied on Encounter [facility] [employer] [facility], [address] [place] [address], [address], [place], [id number], [place] tel:[phone] [place] No Information 4 Vitaly Allen. [address], [address], [place], [address]. tel:[phone] [facility] [employer] [facility], [address] [facility] [address], [address], [place], [id number], [place] tel:[phone] 3 Stamper Kenney. [address], [address], [place], [address]. tel:[phone] Group Therapy [facility], [address], [address], [place], [id number], [place] tel:[phone] [place] 3 Jordan Millie. [address], [address], [place], [address]. tel:[phone] Group Therapy [facility], [address], [address], [place], [id number], [place] tel:[phone] [place] 3 Jordan Millie. [address], [address], [place], [address]. tel:[phone] [facility], [address], [address], [place], [id number], [place] tel:[phone] 3 Mainer Kenney. [address], [address], [place], [address]. tel:[phone] Group Therapy [facility], [address], [address], [place], [id number], [place] tel:[phone] [place] 3 Jordan Millie. [address], [address], [place], [address]. tel:[phone] Group Therapy [facility], [address], [address], [place], [id number], [place] tel:[phone] [place] 3 Jordan Millie. [address], [address], [place], [address]. tel:[phone] Group Therapy [facility], [address], [address], [place], [id number], [place] tel:[phone] [place] 3 Jordan Millie. [address], [address], [place], [address]. tel:[phone] [facility], [address], [address], [place], [id number], [place] tel:[phone] [place] 3 Stamper Kenney. [address], [place] [address], [place], [address]. tel:[phone] Group Therapy [facility], [address] [place] [address], [id number], [place] tel:[phone] [place] 2 Jessy Woodward. [address] [place] [address], [id number]. tel:[phone] [facility], [address] [facility] [address], [id number], [place] tel:[phone] [place] 2 Stamper Kenney. [address], [place] [address], [place], [address]. tel:[phone] Group Therapy [facility], [address] [place] [address], [id number], [place] tel:[phone] [place] 2 [place] Woodward. [address] [place] [address], [id number]. tel:[phone] Group Therapy [facility], [address] [place] [address], [id number], [place] tel:[phone] [place] 2 [place] Woodward. [address] [place] [address], [id number]. tel:[phone] [facility], [address] [place] [address], [id number], [place] tel:[phone] [place] No Information 2 Jessy Woodward. [address] [place] [address], [id number]. tel:[phone] [facility], [address] [place] [address], [id number], [place] tel:[phone] [place] No Information 2 Stamper Kenney. [address], [address], [place], [address]. tel:[phone] [facility], [address] [place] [address], [id number], tel:[phone] [place] No Information Apr-1 1-202 2 [place] Woodward. [address] [place] [address], [id number]. tel:[phone] [facility], [address] [place] [address], [id number], [place] tel:[phone] [place] No Information Apr-0 8-202 2 [place] Shreyas. [address] [place] [address], [id number]. tel:[phone] [facility], [address] [place] [address], [id number], tel:[phone] [place] No Information Apr-0 6-202 2 Jessy Shreyas. [address] [place] [address], [id number]. tel:[phone] [facility], [address] [place] [address], [id number], [place] tel:[phone] [place] No Information Apr-0 4-202 2 Tabatha Moulton. [address], [facility] [address], [place], [address]. tel:[phone] [facility] [address] - TeleHealth [facility], [address] [place] [address], [id number], [place] tel:[phone] [place] No Information Mar-2 5-202 2 Chan Lacy. [address] [place] [address], [id number]. tel:[phone] [facility], [address] [place] [address], [id number], [place] tel:[phone] [place] No Information Mar-2 5-202 2 Tabatha Moulton. [address], [facility] [address], [place], [address]. tel:[phone] [facility], [address], [id number], [place] tel:[phone] [place] No Information Mar-2 3-202 2 Moncus Beth. [address] [place] [address], [id number]. tel:[phone] [facility], [address], [id number], [place] tel:[phone] [place] No Information Mar-2 3-202 2 Jessy Shreyas. [address] [place] [address], [id number]. tel:[phone] [facility], [address] [place] [address], [id number], [place] tel:[phone] [place] No Information Mar-2 1-202 2 Jessy Woodward. [address] [place] [address], [id number]. tel:[phone] [facility], [address] [place] [address], [id number], [place] tel:[phone] [place] No Information Mar-1 8- 2 Jessy Woodward. [address] [place] [address], [id number]. tel:[phone] [facility], [address] [place] [address], [id number], [place] tel:[phone] [place] No Information Mar-1 4-202 2 [place] Woodward. [address] [place] [address], [id number]. tel:[phone] [facility], [address] [place] [address], [id number], [place] tel:[phone] [place] No Information Mar-1 1-202 2 Jessy Woodward. [address] [place] [address], [id number]. tel:[phone] [facility], [address] [place] [address], [id number], [place] tel:[phone] [place] No Information Mar-0 9-202 2 No Information [facility], [address], [id number], [place] tel:[phone] [place] No Information Mar-0 9-202 2 Jessy Shreyas. [address] [place] [address], [id number]. tel:[phone] [facility], [address] [place] [address], [id number], [place] tel:[phone] [place] No Information Mar-0 7-202 2 Jessy Shreyas. [address] [place] [address], [id number]. tel:[phone] [facility], [address] [place] [address], [id number], tel:[phone] [place] No Information Mar-0 4-202 2 Jessy Woodward. [address] [place] [address], [id number]. tel:[phone] [facility], [address] [place] [address], [id number], [place] tel:[phone] [place] No Information Mar-0 2-202 2 No Information [facility], [address] [place] [address], [id number], [place] tel:[phone] [place] No Information Mar-0 2-202 2 Tabatha Moulton. [address] [place] [address] , [address], [place], [address]. tel:[phone] [facility], [address] [place] [address], [id number], [place] tel:[phone] [place] No Information Feb-2 8- 2 [place] Woodward. [address] [place] [address], [id number]. tel:[phone] [facility], [address] [place] [address], [id number], [place] tel:[phone] [place] No Information Feb-2 3-202 2 Jessy Woodward. [address], [place], [id number]. tel:[phone] [facility], [address] [place] [address], [id number], [place] tel:[phone] [place] No Information Feb-2 - 2 [place] Woodward. [address], [place], [id number]. tel:[phone] [facility], [address] [place] [address], [id number], [place] tel:[phone] [place] No Information Feb-1 2 Jessy Woodward. [address], [place], [id number]. tel:[phone] [facility], [address] [place] [address], [id number], [place] tel:[phone] [place] No Information Feb-1 - 2 No Information [facility], [address] [place] [address], [id number], [place] tel:[phone] [place] No Information Feb-1 2 Jessy Woodward. [address], [place], [id number]. tel:[phone] [facility], [address] [place] [address], [id number], [place] tel:[phone] [place] No Information Feb-0 2 [place] Shreyas. [address], [place], [id number]. tel:[phone] [facility], [address] [place] [address], [id number], [place] tel:[phone] [place] No Information Feb-0 - 2 [place] Shreyas. [address] [place] [address], [id number]. tel:[phone] [facility], [address] [place] [address], [id number], [place] tel:[phone] [place] No Information 2 No Information [facility], [address] [place] [address], [id number], [place] tel:[phone] [place] No Information 2 Jessy Woodward. [address] [place] [address], [id number]. tel:[phone] [facility], [address] [place] [address], [id number], [place] tel:[phone] [place] No Information 2 Jessy Woodward. [address] [place] [address], [id number]. tel:[phone] [facility], [address] [place] [address], [id number], [place] tel:[phone] [place] No Information 2 No Information [facility], [address] [place] [address], [id number], [place] tel:[phone] [place] No Information 2 Jessy Woodward. [address] [place] [address], [id number]. tel:[phone] [facility], [address] [place] [address], [id number], [place] tel:[phone] [place] No Information 2 [place] Shreyas. [address] [place] [address], [id number]. tel:[phone] [facility], [address] [place] [address], [id number], [place] tel:[phone] [place] No Information 2 Jessy Woodward. [address] [place] [address], [id number]. tel:[phone] [facility], [address] [place] [address], [id number], [place] tel:[phone] [place] No Information 2 Jessy Pritchett. [address], [place], [id number]. tel:[phone] [facility], [address] [facility] [address], [place], [id number], tel:[phone] [place] No Information 2 Jessy Pritchett. [address], [place], [id number]. tel:[phone] [facility], [address], [place], [id number], tel:[phone] [place] No Information 2 No Information Clinical Assessment - TeleHealth [facility], [address] [facility] [address], [place], [id number], tel:[phone] [place] Persistent depressive disorderPosttrau matic stress disorder 2 Gamino Florinda. [address] [facility], [address], [place], [address]. tel:[phone] As per patient privacy policy some of the clinical information may not be visible. Family History Family Member Type Diagnosis Age At Onset No Information Payers Payer name Insurance type Covered green party ID Authordua priteshkerry(s) [facility] [id number] Social History Type Description Quantity Date Captured Comments Sex Male Smoking Status No Information Sexual Orientation Straight or heterosexual Sep Gender Identity Male Chief Complaint And Reason For Visit No Information Reason For Referral Reason For Referral No Information Plan Of Treatment Date Type Action Status Goal Tobacco cessation counseling completed Future Order: Lab Order CMP (Incisive Surgical prehensive Metabolic Panel) ([id number]), Sent on: Sent Future Order: Lab Order TSH ([id number]), Sen t on: Sent Future Order: Lab Order CBCw Dif f ([id number]), Sent on: Sent Future Order: Lab Order Vitamin D, 25-Hydroxy ([id number]), Sent on: Sent History Of Present Illness [...]
--- OUTSIDE RECORDS SUMMARY | 2024-08-29 23:30 | XMS_ITS | Patient Health Summary ---
Author Organization [facility] Address [address] [place] [address] Care Team Providers Care Tube Cleaning Operator Name Role Phone Abril Hall DO Primary Care Provider [phone] Jordin Ocampo MD Unavailable [phone] Note from [facility],non-owned Affiliates and Associated Physician Practices is amultiple site organization consisting of ambulatory clinics and hospital sitesin [place], [place], [place] and [place]. This disclosure is being madepursuant to the Care Everywhere program and may not contain all information available regarding this patient. Last updated 18.[facility] Immunizations * TDAP (7yrs+)(Given 11/21/2017) Social History Tobacco Use Types Packs/Day Years Used Date Smoking Tobacco: Never Assessed Sex and Gender Information Value Date Recorded Sex Assigned at Not on file Gender Identity Not on file Sexual Orientation Not on file Care Teams Tube Cleaning Operator Relationship Specialty Start Date End Date Abril Hall DO [address] [place] [address] PCP - General 05/03/21 Jordin Ocampo MD [address] [place] [id number] Family Medicine 05/03/21
--- OUTSIDE RECORDS SUMMARY | 2024-08-29 23:30 | XMS_ITS | Clinical Summary ---
Author Organization [facility] Address [address] [place] [place] [address] Care Team Providers Care Sewer Head Name Role Phone Abril Hall Primary Care Provider [phone] Jordin Ocampo MD Unavailable [phone] Source Comments [facility],non-owned Affiliates and Associated Physician Practices is amultiple site organization consisting of ambulatory clinics and hospital sitesin [place], [place], [place] and [place]. This disclosure is being madepursuant to the Care Everywhere program and may not contain all information available regarding this patient. Last updated 18.[facility] Immunizations Name Administration Dates Next Due TDAP (7yrs+) 11/21/2017 Social History Tobacco Use Types Packs/Day Years Used Date Smoking Tobacco: Never Assessed Sex and Gender Information Value Date Recorded Sex Assigned at Not on file Gender Identity Not on file Sexual Orientation Not on file Plan of Treatment Health Maintenance Due Date Last Done Comments COLOGUARD (AGES 45-75) - COL ON CA SCREENING 1960 COLON MONITORING 1959 COLONOSCOPY - COLON CA SCREENING 1959 CT COLONOGRAPHY - COLON CA SCREENING 1959 Colorectal Cancer Screening 1959 FIT - COLON CA SCREENING 1959 FLEX SIG - COLON CA SCREENING 1959 LIPID TESTING 1959 HIV SCREENING 1974 HEPATITIS C SCREENING 08/09/1977 ZOSTER VACCINE (1 of 2) 2009 DEPRESSION SCREENING 09/02/2023 COVID-19 VACCINE (2023-2 5 season) 2024 INFLUENZA VACCINE (#1) 2024 PNEUMOCOCCAL VACCINE 65+ (1 of 1 - PCV) 2024 DTAP/TDAP/TD VACCINES (2 - T d or Tdap) 11/22/2027 11/21/2017 Respiratory Syncytial Virus (RSV) Vaccine Pt: or over 60 yrs (1 - 1-dose 75+ series) 2034 HEPATITIS B VACCINE Aged Out No longe r eligible based on patient's age to complete this topic HIB VACCINE Aged Out No longer eligi ble based on patient's age to complete this topic HPV VACCINE Aged Out No longer eligi ble based on patient's age to complete this topic MENINGOCOCCAL VACCINE Aged Out No josiane ingrid eligible based on patient's age to complete this topic Care Teams Sewer Head Relationship Specialty Start Date End Date Abril Hall DO [address] [place] [address] PCP - General 05/03/21 Jordin Ocampo MD [address] [place] [id number] Family Medicine 05/03/21
== END 2024-08-22 18:53 | disposition home or self-care (01) ==
PROVIDERS: Emergency Provider Registered Nurse; PCP Family Medicine
DX: J06.9 Acute upper respiratory infection, unspecified (principal); I48.91 Unspecified atrial fibrillation; E03.9 Hypothyroidism, unspecified; Z79.01 Long term (current) use of anticoagulants
CPT/HCPCS: 99213; G0463

== ENCOUNTER 2025-03-11 01:25 | Day surgery (SDC) | payer MEDICARE, SELFPAY ==
[2025-03-10 14:13] VITALS: BMI 42.7
--- NOTE | 2025-03-11 | ECHO_ITS ---
Patient Info Name: Mg George Age: 64 years : 1960 Gender: Male Ht: 67 in Wt: 273 lbs BSA: 2.48 m2 HR: 111 bpm BP: 145 / 95 mmHg Technical Quality: Good Exam Date: 03/11/2025 9:08 AM Patient Status: O Admit Date: 03/11/2025 Exam Type: CA echo transesophageal Complete two-dimensional, color flow and Doppler transesophageal study is performed. Operations Technician: Vero Riggs Attending Provider: Sonido Aviles Summary 1. There is normal biventricular size and systolic function. 2. There are no significant valvular abnormalities. 3. The left atrial appendage is free of thrombus. 4. There is a small size pericardial effusion. Complications There were no complication prior to, during or in recovery from the transesophageal echocardiogram. Medications The posterior pharynx was sprayed with Cetacaine spray. Sedation was provided by Anesthesia team. Procedure Details The patient arrived in a fasting state after obtaining informed consent. The transesophageal probe was passed into the posterior pharynx, mid-esophagus, and distal esophagus. Imaging was performed at multiple levels. The patient tolerated the procedure well and there were no complications. The patient was transferred out of the examination area in satisfactory condition. Left Ventricle The left ventricle is normal in size and systolic function. Right Ventricle The right ventricle is normal in size and systolic function. Left Atria The left atrium is mildly dilated. Right Atria The right atrium is normal size. Atrial Septum The atrial septum is normal. Atrial Appendage Left atrial appendage was assessed with contrast and is free of thrombus. Aortic Valve The aortic valve is trileaflet and opens well. There is trace aortic regurgitation. Pulmonic Valve The pulmonic valve is grossly normal. There is no pulmonic valve regurgitation. Mitral Valve The mitral valve is normal. There is trace mitral regurgitation. Tricuspid Valve The tricuspid valve is grossly normal. There is no tricuspid regurgitation. Pericardium/Pleural There is a small amount of pericardial effusion. Aorta The visualized portions of the aorta has mild atherosclerotic plaque. Report Signatures
--- OUTSIDE RECORDS SUMMARY | 2025-03-11 01:29 | XMS_ITS | Clinical Summary ---
Author Organization [facility] Address [address] [place] [address] Care Team Providers Care Slope Runner Name Role Phone Abril Hall Primary Care Provider [phone] Jordin Ocampo MD Unavailable [phone] Source Comments [facility],non-owned Affiliates and Associated Physician Practices is amultiple site organization consisting of ambulatory clinics and hospital sitesin [place], [place], [place] and [place]. This disclosure is being madepursuant to the Care Everywhere program and may not contain all information available regarding this patient. Last updated 18.[facility] Immunizations Immunization Administration Dates Next Due TDAP (7yrs+) 11/21/2017 Social History Tobacco Use Types Packs/Day Years Used Date Smoking Tobacco: Never Assessed Sex and Gender Information Value Date Recorded Sex Assigned at Not on file Legal Sex Male 4:28 PM CDT Gender Identity Not on file Sexual Orientation [...] HIV SCREENING 1974 HEPATITIS C SCREENING 08/09/1977 PNEUMOCOCCAL VACCINE 50+ (1 of 1 - PCV) 2009 ZOSTER VACCINE (1 of 2) 2009 COVID-19 VACCINE ( - 2023-2 5 season) 2024 DEPRESSION SCREENING 09/02/2024 INFLUENZA VACCINE (#1) 2025 DTAP/TDAP/TD VACCINES (2 - T d or [...] patient's age to complete this topic MENINGOCOCCAL (Group B) VACC INE SHARED DECISION-MAKING Aged Out No longer eligibl e based on patient's age to complete this topic MENINGOCOCCAL GROUPS A/C/Y/W VACCINE Aged Out No longer eligible b ased on patient's age to complete this topic Insurance [facility] Care Teams Slope Runner Relationship Specialty Start Date End Date Abril Hall DO [address] [place] [address] PCP - General 05/03/21 Jordin Ocampo MD [address] [place] [id number] Family Medicine 05/03/21
--- NOTE | 2025-03-11 07:30 | ECG_ITS ---
Test Date: 2025-03-11 09:53:21 Measurements Intervals [place] Rate: 62 P: 41 ID: 270 QRS: -12 QRSD: 105 T: 61 QT: 396 QTc: 403 Interpretive Statements SINUS RHYTHM WITH FIRST DEGREE AV BLOCK POSSIBLE LEFT ATRIAL ENLARGEMENT [-0.1mV P-WAVE IN V1/V2] POSSIBLE ANTERIOR MYOCARDIAL INFARCTION , OF INDETERMINATE AGE [30 ms Q WAVE IN V3/V4, OR R < 0.2 mV IN V4] INFERIOR MYOCARDIAL INFARCTION , OF INDETERMINATE AGE [40+ ms Q WAVE AND/OR ST/T ABNORMALITY IN II/aVF] Compared to ECG 03/11/2025 07:49:58 First degree AV block now present Atrial fibrillation no longer present Myocardial infarct finding still present Electronically Signed On 03-11-2025 13:03:22 CDT by Sonido Aviles M.D.
[2025-03-11 07:52] VITALS: BP 156/103; PULSE 77; RESP 16; TEMP 36.6; O2SAT 95; BMI 38.7
[2025-03-11 08:19] LABS: Anion Gap 11 mmol/L (4-12); Blood Urea Nitrogen 25 mg/dL (9-20); Calcium 9.8 mg/dL (8.4-10.2); Carbon Dioxide 20 mmol/L (22-30); Chloride 107 mmol/L (98-107); Estimated CRCL calculation 82 ml/min; Estimated Glomerular Filt Rate > 60; Glucose 108 mg/dL (65-110); Magnesium 1.8 mg/dL (1.6-2.3); Potassium 3.7 mmol/L (3.4-5.0); Sodium 138 mmol/L (137-145)
--- NOTE | 2025-03-11 09:00 | ECG_ITS ---
Test Date: 2025-03-11 07:49:58 Measurements Intervals [place] Rate: 92 P: 0 WA: 0 QRS: -25 QRSD: 100 T: 119 QT: 358 QTc: 444 Interpretive Statements ATRIAL FIBRILLATION INFERIOR MYOCARDIAL INFARCTION , PROBABLY OLD [40+ ms Q WAVE AND/OR ST/T ABNORMALITY IN II/aVF] ANTEROSEPTAL MYOCARDIAL INFARCTION , OF INDETERMINATE AGE [40+ ms Q WAVE IN V1-V4] Compared to ECG 08/17/2024 09:37:21 Ventricular premature complex(es) no longer present Aberrant conduction of supraventricular beat(s) no longer present Myocardial infarct finding still present Electronically Signed On 03-11-2025 13:01:50 CDT by Sonido Aviles M.D.
--- NOTE | 2025-03-11 09:08 | WPDHPUPDATE1 ---
History and Physical Update Update Date/Time: 03/11/25 09:08 History and Physical has been reviewed, including an updated exam of the patient. There are NO changes in the patient's condition. Risks, benefits, and alternatives have been discussed and questions answered. Patient agrees to proceed with procedure.
--- NOTE | 2025-03-11 09:39 | P.PNAN_ITS ---
Anes - Initial Pre Proc Eval Procedure: Operation Date: 03/11/25 09:00 Proposed Procedures p Electrical Cardioversion - Sonido Aviles MD s Trans Esophageal Echo - Sonido Aviles MD Date/Time: 03/11/25 09:39 Surgeon: Sonido Aviles MD Pre Op Diagnosis: a-fib Patient Data Age: 64 Gender: M Height: 1.7 m Weight: 112.3 kg Last Vital Signs Temp 98 F 03/11/25 07:52 Pulse 77 03/11/25 07:52 Resp 16 03/11/25 07:52 BP 156/103 H 03/11/25 07:52 Pulse Ox 95 03/11/25 07:52 O2 Del Method Room Air 03/11/25 07:52 Allergies Allergy/AdvReac Type Severity Reaction Status Date / Time No Known Drug Allergies Allergy Unknown Unknown Verified 03/11/25 07:48 Home Medications ?Medication ?Instructions ?Recorded ?Confirmed ?Type multivitamin 1 tablet PO DAILY 08/17/24 03/10/25 History amlodipine 10 mg-valsartan 320 mg See Rx Instructions .Route 10/14/24 03/11/25 Rx tablet .COMPLEX #90 tabs hydrochlorothiazide 25 mg tablet 25 mg PO DAILY #90 tabs 10/14/24 03/10/25 Rx metoprolol succinate 100 mg 100 mg PO DAILY #90 tabs 10/14/24 03/11/25 Rx tablet,extended release 24 hr rivaroxaban 20 mg tablet (Xarelto) 20 mg PO DAILY #90 tabs 12/14/24 03/10/25 Rx levothyroxine 50 mcg tablet 50 mcg PO DAILY #90 tabs 01/01/25 03/11/25 Rx (Synthroid) fenofibrate 160 mg tablet 160 mg PO DAILY #90 tabs 02/12/25 03/10/25 Rx Laboratory Tests 03/11/25 07:55 Sodium 138 mmol/L (137-145) Potassium 3.7 mmol/L (3.4-5.0) Chloride 107 mmol/L (98-107) Carbon Dioxide 20 L mmol/L (22-30) Anion Gap 11 mmol/L (4-12) BUN 25 H mg/dL (9-20) Creatinine 0.94 mg/dL (0.7-1.3) Estim Creat Clear Calc 82 ml/min Estimated GFR > 60 (59 - ) Glucose 108 mg/dL (65-110) Calcium 9.8 mg/dL (8.4-10.2) Magnesium 1.8 mg/dL (1.6-2.3) Patient hx anesthesia problems: none Family hx anesthesia problems: none Results Review: All pre-operative results and documents have been reviewed as part of the pre- operative evaluation. [facility] Past Medical History Medical History Atrial fibrillation new onset Prediabetes Obesity, unspecified Hypertriglyceridemia Hypothyroidism Surgical History Surgical History History of carpal tunnel release H/O colonoscopy Total knee replacement status Family History Family History Mother Diabetes mellitus Hypertension Family history of kidney disease Family history of coronary artery disease Father Hypertension Acute myocardial infarction Family history of coronary artery disease Patient's father is , Onset Age: 61 Sibling Acute myocardial infarction Family history of malignant neoplasm of brain Family history of obesity, Onset Age: 43 Family history of coronary artery disease, Onset Age: 43 Social History Social History Social History: Caffeine- soda, decaf coffee Smoking status: Never smoker Second hand tobacco smoke exposure: No Alcohol intake: current Drinks per week: 5 Alcohol use details: beer Substance use: never Substance use type: does not use Do You Feel Safe in your Home?: Yes Lack of Transportation: No Lack of Food: Never True Current Housing: I Have Housing Concerned About Future Housing: No Difficulty Paying Gas/Electric Bills: No Difficulty Paying for Meds: No Currently Unemployed: No Education: High School Diploma/GED Difficulty w/ Childcare or Family Care: No Living arrangements: with family Gender identity (if verbalized by the patient): Male Sexual Orientation (if Verbalized by the Patient): Straight or Heterosexual Spiritual care concerns: No Anes - Eval Final PreProcedure Day of Procedure 03/11/25 09:39 Patient weight: obese Lungs: normal air movement Airway: Mallampati scale class II and special considerations (Upper L incisor w chip/crack. ) Neurological: alert and oriented Last oral intake: >/= 8 hours ASA classification: III Emergent: no Anesthetic plan: proceed Anesthesia type and monitoring: general GIVS and standard monitoring Results Review: All pre-operative results and documents have been reviewed as part of the pre- operative evaluation. HTN, preDM, afib, now for JL/poss CV. Pt overall active w gardening, walking, no cp or sob. Informed Consent: The patient's anesthetic plan and its attendant risks and benefits were discussed with the patient/family/POA. Questions were solicited and answers provided to the satisfaction of the patient/family/POA.
[2025-03-11 10:05] VITALS: BP 115/80; PULSE 63; RESP 14; O2SAT 96
[2025-03-11 10:20] VITALS: BP 105/57; PULSE 59; RESP 20; O2SAT 96
--- NOTE | 2025-03-11 10:29 | P.PCNTEECA_ITS ---
JL with Cardioversion Date of procedure: 03/11/25 Procedure Type: Transesophageal guided synchronized cardioversion Diagnosis: Persistent atrial fibrillation Indications: Persistent atrial fibrillation Description of Procedure: Please refer to transesophageal echocardiogram dictation for the JL portion of this examination. Once JL confirmed no atrial appendage clot, synchronized cardioversion was performed with 200J with denominational of sinus rhythm. Sedation: Please refer to Anesthesia documentation. Findings: Please refer to transesophageal echocardiogram dictation for the JL portion of this examination. Successful synchronized cardioversion with denominational of sinus rhythm. Conclusion: Continue Xarelto 20 mg every evening with dinner. Decrease metoprolol succinate to 50 mg p.o. daily Follow up in clinic
[2025-03-11 10:35] VITALS: BP 123/76; PULSE 60; RESP 20; O2SAT 98
[2025-03-11 10:50] VITALS: BP 127/78; PULSE 60; RESP 20; O2SAT 98
[2025-03-11 11:05] VITALS: BP 132/90; PULSE 62; RESP 18; O2SAT 100
--- NOTE | 2025-03-16 20:36 | PM.IMHP ---
H&P: HPI History of Present Illness Date/Time: 03/11/25 08:36 Chief Complaint: Persistent AFIB Narrative: 64 yo man with HTN is here with persistent AFIB. No symptoms but remains in persistent AFIB. Has [address] and able to do yard work and gardening without any significant cardiopulmonary limitations Review of Systems Review of Systems: All systems reviewed & are unremarkable except as noted in HPI and below PMFSH Past Medical History Medical History Atrial fibrillation new onset Prediabetes Obesity, unspecified Hypertriglyceridemia Hypothyroidism Surgical History Surgical History History of carpal tunnel release H/O colonoscopy Total knee replacement status Family History Family History Mother Diabetes mellitus Hypertension Family history of kidney disease Family history of coronary artery disease Father Hypertension Acute myocardial infarction Family history of coronary artery disease Patient's father is , Onset Age: 61 Sibling Acute myocardial infarction Family history of malignant neoplasm of brain Family history of obesity, Onset Age: 43 Family history of coronary artery disease, Onset Age: 43 Social History Social History Social History: Caffeine- soda, decaf coffee Smoking status: Never smoker Second hand tobacco smoke exposure: No Alcohol intake: current Drinks per week: 5 Alcohol use details: beer Substance use: never Substance use type: does not use Do You Feel Safe in your Home?: Yes Lack of Transportation: No Lack of Food: Never True Current Housing: I Have Housing Concerned About Future Housing: No Difficulty Paying Gas/Electric Bills: No Difficulty Paying for Meds: No Currently Unemployed: No Education: High School Diploma/GED Difficulty w/ Childcare or Family Care: No Living arrangements: with family Gender identity (if verbalized by the patient): Male Sexual Orientation (if Verbalized by the Patient): Straight or Heterosexual Spiritual care concerns: No Meds Home Medications and Allergies Home Medications ?Medication ?Instructions ?Recorded ?Confirmed ?Type multivitamin 1 tablet PO DAILY 08/17/24 03/10/25 History amlodipine 10 mg-valsartan 320 mg See Rx Instructions .Route 10/14/24 03/11/25 Rx tablet .COMPLEX #90 tabs hydrochlorothiazide 25 mg tablet 25 mg PO DAILY #90 tabs 10/14/24 03/10/25 Rx rivaroxaban 20 mg tablet (Xarelto) 20 mg PO DAILY #90 tabs 12/14/24 03/10/25 Rx levothyroxine 50 mcg tablet 50 mcg PO DAILY #90 tabs 01/01/25 03/11/25 Rx (Synthroid) fenofibrate 160 mg tablet 160 mg PO DAILY #90 tabs 02/12/25 03/10/25 Rx metoprolol succinate 50 mg 50 mg PO DAILY #90 tabs 03/11/25 Rx tablet,extended release 24 hr Allergies Allergy/AdvReac Type Severity Reaction Status Date / Time No Known Drug Allergies Allergy Unknown Unknown Verified 03/11/25 07:48 Exam Const: General: comfortable HENMT: Mouth: Yes moist mucous membranes Eyes: EOM: EOMs intact bilaterally Neck: Neck: no JVD Resp: Effort & Inspection: normal respiratory effort Auscultation: clear to auscultation bilaterally Cardio: Rate: regular rate Rhythm: abnormal rhythm Neuro: Speech: normal speech Motor exam (neuro): 5/5 motor strength present throughout Extrem: General: no pedal edema Psych: Mental Status: mental status grossly normal Affect: normal affect Assessment and Plan Assessment and plan (1) Persistent atrial fibrillation: Code(s): I48.19 - Other persistent atrial fibrillation Status: Acute Assessment and Plan: we discussed the risk, benefits, and alternatives to treating his persistent atrial fibrillation and after patient expressed understanding and all questions answered, we proceeded with JL guided cardioversion with MAC after confirming patient has been anticoagulated without missing any doses
== END 2025-03-11 11:15 | disposition home or self-care (01) ==
PROVIDERS: PCP Family Medicine; Visit Provider Internal Medicine
PROC: 5A2204Z Restoration of Cardiac Rhythm, Single (ICD-10-PCS; principal; 2025-03-11 09:00)
PROC: (CPT 93312; 2025-03-11 09:00)
DX: I48.19 Other persistent atrial fibrillation (principal); I31.39 Other pericardial effusion (noninflammatory); I44.0 Atrioventricular block, first degree; I10 Essential (primary) hypertension; R73.03 Prediabetes; E78.1 Pure hyperglyceridemia; E03.9 Hypothyroidism, unspecified; E66.9 Obesity, unspecified; Z68.38 Body mass index [BMI] 38.0-38.9, adult; Z79.1 Long term (current) use of non-steroidal anti-inflammatories (NSAID); Z79.01 Long term (current) use of anticoagulants; Z98.890 Other specified postprocedural states; Z80.8 Family history of malignant neoplasm of other organs or systems; Z82.49 Family history of ischemic heart disease and other diseases of the circulatory system
CPT/HCPCS: 36415; 80048; 83735; 92960; 93312; 93320; 93325; J7040

== ENCOUNTER 2025-05-25 08:21 | Outpatient (CLI) | payer MEDICARE, SELFPAY ==
--- OUTSIDE RECORDS SUMMARY | 2025-05-25 08:40 | XMS_ITS | Clinical Summary ---
Author Organization [facility] Address [address] [place] [address] Care Team Providers Care Meatman Name Role Phone Abril Hall Primary Care Provider [phone] Jordin Ocampo MD Unavailable [phone] Source Comments [facility],non-owned Affiliates and Associated Physician Practices is amultiple site organization consisting of ambulatory clinics and hospital sitesin [place], [place], [place] and [place]. This disclosure is being madepursuant to the Care Everywhere program and may not contain all information available regarding this patient. Last updated 18.[facility] Immunizations Immunization Administration Dates Next Due [...] 2009 ZOSTER VACCINE (1 of 2) 2009 DEPRESSION SCREENING 09/02/2024 COVID-19 VACCINE (1 - 2023-2 5 season) 2025 INFLUENZA VACCINE (#1) 2025 DTAP/TDAP/TD VACCINES (2 [...] patient's age to complete this topic Insurance [facility] Care Teams Meatman Relationship Specialty Start Date End Date Abril Hall DO [address] [place] [id number] PCP - General 05/03/21 Jordin Ocampo MD [address] [place] [id number] Family Medicine 05/03/21
--- NOTE | 2025-06-15 16:53 | P.SLEEP_ITS ---
Sleep Study Date of Study: 05/25/25 Ordering Provider: TITA Zepeda Interpreting Physician: Chel León MD Sleep Study Type: Split Polysomnogram Height: 1.7 m Weight: 114.759 kg Body Mass Index: 39.6 Neck Circumference (inches): 19.5 [place]: 3 Reason for Sleep Study Loud snoring; recently diagnosed atrial fibrillation Sleep History Mg George is a 64-year-old man with loud snoring. He was diagnosed with atrial fibrillation in August but he did not know it until recently. He does not have any specific sleep complaints. He never awakens from sleep feeling short of breath. He rarely wakes at night with heartburn, belching or coughing.??He occasionally snores, occasionally snores loudly enough that others complain. He rarely has trouble sleeping when he has a cold. He never wakes up gasping for breath during the night. He never has breathing problems at night. He rarely sweats excessively at night. He never notices his heart pounding or beating irregularly during the night. He rarely falls asleep during the day. He never falls asleep involuntarily, never falls asleep while driving. He never experiences loss of muscle tone with strong emotion. He never has daytime difficulty at work due to excessive sleepiness. He never feels paralyzed on waking or falling asleep. He never experiences vivid dreams upon waking or falling asleep. He never feels afraid of going to sleep. He rarely has nightmares. He rarely recalls his dreams. He rarely has thoughts racing through his mind. He never feels sad or depressed. He never feels anxiety. He rarely notices parts of his body jerk. He rarely kicks during the night. He never feels crawling or aching feelings in his legs. He never feels leg pain at night. He never has morning jaw pain, never grinds his teeth at night. He rarely feels bothered by pain during the day, never awakened by pain during the night. He does not mention whether or not he wakes up feeling stiff in the morning. He never wakes feeling sore or achy. He never awakens with pain in his neck, spine, or joints. Normal bedtime is 11:00 p.m., falling asleep within 30 minute, waking once at night to go to the bathroom. Wake time is between 7:00 a.m. and 7:30 a.m.. He typically gets between 6.5 and 7.5 hours of sleep per night. He keeps a similar schedule on days off. He does not generally take naps in the day although a short nap lasting 10-15 minutes may be refreshing. Habits:??Tobacco: Never smoker Caffeine: 1 serving daily Alcohol: 1 serving daily Recreational substances: none PMFSH Past Medical History Medical History Atrial fibrillation new onset Prediabetes Obesity, unspecified Hypertriglyceridemia Hypothyroidism Surgical History Surgical History History of carpal tunnel release H/O colonoscopy Total knee replacement status Family History Family History Mother Diabetes mellitus Hypertension Family history of kidney disease Family history of coronary artery disease Father Hypertension Acute myocardial infarction Family history of coronary artery disease Patient's father is , Onset Age: 61 Sibling Acute myocardial infarction Family history of malignant neoplasm of brain Family history of obesity, Onset Age: 43 Family history of coronary artery disease, Onset Age: 43 Social History Social History Social History: Caffeine- soda, decaf coffee Smoking status: Never smoker Second hand tobacco smoke exposure: No Alcohol intake: current Drinks per week: 5 Alcohol use details: beer Substance use: never Substance use type: does not use Do You Feel Safe in your Home?: Yes Lack of Transportation: No Lack of Food: Never True Current Housing: I Have Housing Concerned About Future Housing: No Difficulty Paying Gas/Electric Bills: No Difficulty Paying for Meds: No Currently Unemployed: No Education: High School Diploma/GED Difficulty w/ Childcare or Family Care: No Living arrangements: with family Gender identity (if verbalized by the patient): Male Sexual Orientation (if Verbalized by the Patient): Straight or Heterosexual Spiritual care concerns: No Medications Home Medications ?Medication ?Instructions ?Recorded ?Confirmed ?Type multivitamin 1 tablet PO DAILY 08/17/24 0 04/07/25 History levothyroxine 50 mcg tablet 50 mcg PO DAILY #90 tabs 0 01/01/25 04/07/25 Rx (Synthroid) fenofibrate 160 mg tablet 160 mg PO DAILY #90 tabs 04/07/25 Rx metoprolol succinate 50 mg 50 mg PO DAILY #90 tabs 06/2604/07/25 Rx tablet,extended release 24 hr amlodipine 10 mg-valsartan 320 mg See Rx Instructions .Route 03/29/25 04/07/25 Rx tablet .COMPLEX #90 tabs hydrochlorothiazide 25 mg tablet 25 mg PO DAILY #90 ta bs 03/29/25 04/07/25 Rx eszopiclone 2 mg tablet (Lunesta) 2 mg PO ONCE #1 tabl et 04/07/25 04/07/25 Rx rivaroxaban 20 mg tablet (Xarelto) 20 mg PO DAILY #90 tabs 06/17/25 Rx Sleep Procedure A split night polysomnogram using the [employer] multi-channel system recorded the standard physiologic parameters including EEG, EOG, submentalis EMG, anterior tibialis EMG, EKG, body position, nasal and oral airflow using nasal pressure sensor and thermistor. Respiratory parameters of chest and abdominal movements were recorded with Respiratory Inductance Plethysmography belts. Oxygen saturation was recorded by pulse oximetry. Video monitoring was also performed. Sleep stages, periodic limb movements, and EEG arousals were scored in 30 second epochs according to the criteria of the AASM Scoring Manual. The Apnea-Hypopnea Index was calculated using CMS guidelines for definition of hypopnea while scoring respiratory events. After the baseline portion the patient met criteria for a titration with an AHI of 18.6 and desaturation to 75%. He used a medium ResMed AirTouch N30 I nasal cushion with heated humidity, initial pressure was CPAP 4 cm increased to 5 cm, 6 cm, 7 cm, 8 cm. EPR 3 cm was added to allow him to tolerate higher pressures. At CPAP 8 cm with 3 cm EPR, patient spent 8.5 minutes in bed, 2 minutes awake, 5 minutes in non-REM and 1.5 minutes in REM. Sleep efficiency was 76.5%. The residual apnea-hypopnea index was 0 and the lowest saturation was 91%. At CPAP 7 cm, the patient spent 53.5 minutes in bed, 4 minutes awake, 7 minutes in non- REM and 42.5 minutes in REM with a sleep efficiency of 92.5%. The residual apnea-hypopnea index was 1.2 and the lowest saturation was 88%. I am recommending CPAP 8 cm with 3 cm EPR as the optimum pressure as this had a significant improvement in minimum saturation compared to 7 cm. The patient had REM in the right lateral position on CPAP 7 and CPAP 8 with 3 of EPR. Sleep Architecture During the diagnostic portion of the study, the total recording time was 222.0 minutes. The total sleep time was 151.5 minutes. Sleep latency was 20.5 minutes. REM latency was 110.0 minutes. Sleep Efficiency was 68.2%. The patient had 27 awakenings for an awakening index of 10.7. Wake after sleep onset time was 50.0 minutes. The patient spent 40.0 minutes, 26.4% of total sleep time in Stage N1. The patient spent 81.0 minutes, 53.5% in Stage N2. The patient spent 14.0 minutes, 9.2% in Stage N3. The patient spent 16.5 minutes, 10.9% in Stage REM sleep. At 02:47:20 AM the patient was placed on PAP treatment and was titrated at pressures ranging from 4* cm/H20 with supplemental oxygen at - up to 8* cm/H20 with supplemental oxygen at -. During the treatment portion of the study, the total recording time was 199.0 minutes. The total sleep time was 71.5 minutes. Sleep latency was 77.0 minutes. REM latency was 61.5 minutes. Sleep Efficiency was 35.9%. Wake after Sleep Onset time was 50.5 minutes. The patient spent 15.5 minutes, 21.7% of total sleep time in Stage N1. The patient spent 12.0 minutes, 16.8% in Stage N2. The patient spent 0.0 minutes, 0.0% in Stage N3. The patient spent 44.0 minutes, 61.5% in Stage REM. Respiratory Analysis During the diagnostic portion of the study, the patient had 9 hypopneas, 32 obstructive apneas, 6 mixed apneas, and 1 central apneas for an overall Apnea Hypopnea Index of 18.6 events per hour. The REM Apnea Hypopnea Index was 76.4. The NREM Apnea Hypopnea Index was 11.6. The patient had a Central Apnea Hypopnea Index of 0.8. There were - Respiratory Effort Related Arousals resulting in a RERA index of - events per hour. The Respiratory Disturbance Index is 18.6 events per hour. There was no evidence of Kingston-Nichole Respirations. During the treatment portion of the study, the patient had 3 hypopneas, no obstructive apneas, no mixed apneas, and no central apneas for an overall Apnea Hypopnea Index of 2.5 events per hour. The REM Apnea Hypopnea Index was 1.4. The NREM Apnea Hypopnea Index was 4.4. The patient had a Central Apnea Hypopnea Index of 0. There were no Respiratory Effort Related Arousals. The Respiratory Disturbance Index is 2.5 events per hour. There was no evidence of Kingston-Nichole Respirations. Arousals During the diagnostic portion of the study, there were a total of 87 arousals for an arousal index of 34.5. There were 16 respiratory arousals for an index of 6.3. There were 3 periodic limb movement arousals for an index of 1.2. There were 6 isolated limb movement arousals for an index of 2.4. There were 62 spontaneous arousals for an index of 24.6. During the treatment portion of the study, there were a total of 29 arousals for an index of 24.3. There were 2 respiratory arousals for an index of 1.7. There were no periodic limb movement arousals or isolated limb movement arousals. There were 27 spontaneous arousals for an index of 22.7. Periodic Limb Movements During the diagnostic portion of the study, the patient had 20 isolated limb movements with an index of 7.9. The patient had 11 periodic limb movements with an index of 4.4. The patient had a total of 31 limb movements with a total limb movement index of 12.3. During the treatment portion of the study, the patient had 1 isolated limb movements with an index of 0.8. The patient had no periodic limb movements. The patient had a total of 1 limb movement with a total limb movement index of 0.8. Oximetry Data During the diagnostic portion of the study, the patient had an average oxygen saturation of 90.7% in wake with a minimum oxygen saturation of 77% and a maxim um oxygen saturation of 97%. The patient had an average oxygen saturation of 90% in sleep with a minimum oxygen saturation of 75% and a maximum oxygen saturation of 97%. The patient had 75 oxygen desaturations resulting in an Oxygen Desaturation Index of 29.7. The patient spent 45.7 minutes, 20.8% of total sleep time with an oxygen saturation less than 88%. During the treatment portion of the study, the patient had an average oxygen saturation of 94% in wake with a minimum oxygen saturation of 88% and a maximum oxygen saturation of 98%. The patient had an average oxygen saturation of 93% in sleep with a minimum oxygen saturation of 88% and a maximum oxygen saturation of 97%. The patient had 20 oxygen desaturations resulting in an Oxygen Desaturation Index of 16.8. The patient spent 0.1 minutes, 0.1% of total sleep time with an oxygen saturation less than 88%. Snoring Profile Snoring was moderate, eliminated at the optimal pressure. Cardiac Profile During the diagnostic portion of the study, the EKG showed normal sinus rhythm. The average pulse rate was 51.6 bpm. The minimum pulse rate was 46 bpm. The maximum pulse rate was 72 bpm. No arrhythmias noted. He did not have atrial fibrillation at all during the night. During the treatment portion of the study, the EKG showed normal sinus rhythm, average pulse rate was 51 bpm, minimum pulse rate was 45 bpm, and the maximum pulse rate was 68 bpm. No arrhythmias noted. EEG Profile Unremarkable, no evidence of seizures. Assessment and Plan Assessment and Plan (1) Obstructive sleep apnea: Code(s): G47.33 - Obstructive sleep apnea (adult) (pediatric) Status: Acute Assessment and Plan: This split night sleep study on 05/25/2025 shows moderate obstructive sleep apnea, the baseline apnea-hypopnea index was 18.6 with desaturation to 75% worse in the supine position, 45.7 minutes or 20.8% of the best baseline spent below 88%, successfully treated with CPAP 8 cm and 3 cm EPR using a medium ResMed AirTouch N30 I nasal cushion with heated humidity. He had REM in the right lateral position at this pressure and at CPAP 7 cm. At this pressure, the patient spent 8.5 minutes in bed, 2 minute awake, 5 minutes in non-REM and 1.5 minutes in REM with sleep efficiency of 76.5% with residual apnea-hypopnea index of 0 and a minimum saturation of 91%. The patient should be prescribed this ResMed equipment as well as tubing, filters and reservoir. This should be used with all episodes of sleep. Compliance should be reviewed within 31-90 days of starting therapy for usage greater than 4 hours per night greater than 70% of the nights. The patient should be asked about symptoms such as excessive daytime sleepiness, quality of sleep, decreased nocturia, increased mental functioning such as memory, mood, and concentration. BMI is 38.6. Weight management is advised. Clinical data suggests that weight loss of 10% can reduce the severity of respiratory events and snoring and improve AHI by as much as 25%. He had sinus rhythm throughout the night, no atrial fibrillation was noted. Data The data obtained during this sleep study is adequate for interpretation. Certification This sleep study has been reviewed by a board certified sleep medicine patito carranza.
[2025-06-23 12:07] VITALS: BMI 39.6
== END 2025-05-26 07:11 | disposition home or self-care (01) ==
LOC: ANHCSM 08:22
PROVIDERS: PCP Nurse Practitioner; Visit Provider Physician Assistant
DX: G47.33 Obstructive sleep apnea (adult) (pediatric) (principal); G47.10 Hypersomnia, unspecified; I10 Essential (primary) hypertension; Z68.38 Body mass index [BMI] 38.0-38.9, adult
CPT/HCPCS: 95811